=== PATIENT | male | born 1945 | race Caucasian/White ===

== ENCOUNTER 2020-01-11 06:13 | Day surgery (SDC) | payer MEDICARE, OTHER ==
[2020-01-04 12:17] LABS: BASOPHILS # (AUTO) 0.1 X10'3 (0-0.2); BASOPHILS % (AUTO) 0.7 % (0-1); EOSINOPHILS # (AUTO) 0.1 X10'3 (0-0.9); EOSINOPHILS % (AUTO) 1.5 % (0-6); LYMPHOCYTES # (AUTO) 2.2 X10'3 (1.1-4.8); LYMPHOCYTES % (AUTO) 26.8 % (21-51); MEAN CORPUSCULAR HEMOGLOBIN 32.2 PG (27.0-31.0); MEAN CORPUSCULAR HGB CONC 33.6 g/dL (33.0-36.5); MEAN CORPUSCULAR VOLUME 95.7 FL (78-98); MEAN PLATELET VOLUME 6.7 FL (7.4-10.4); MONOCYTES # (AUTO) 0.5 X10'3 (0-0.9); MONOCYTES % (AUTO) 6.4 % (2-12); NEUTROPHILS # (AUTO) 5.2 X10'3 (1.8-7.7); NEUTROPHILS % (AUTO) 64.6 % (42-75); PRE OP HEMATOCRIT 38.7 % (42.0-52.0); PRE OP PLATELET COUNT 310 X10'3 (140-440); RED BLOOD COUNT 4.04 X10'6 (4.70-6.10); RED CELL DISTRIBUTION WIDTH 13.3 % (11.5-14.5)
[2020-01-04 12:18] LABS: CLARITY,URINE CLEAR (Clear); COLOR,URINE YELLOW (Yellow); GLUCOSE, URINE NEGATIVE (Neg); KETONES,URINE NEGATIVE (Neg); LEUKOCYTE ESTERASE ,URINE NEGATIVE (Neg); NITRITES, URINE NEGATIVE (Neg); OCCULT BLOOD,URINE NEGATIVE (Neg); PH,URINE 5.5 (4.8-8.0); PROTEIN,URINE NEGATIVE (Neg); UROBILINOGEN,URINE 0.2 E.U/dL (0.2-1.0)
[2020-01-04 12:28] LABS: UA COLLECTION TYPE NON-SPECIFIED
[2020-01-04 12:41] LABS: ALBUMIN 3.7 G/DL (3.4-5.0); ALBUMIN/GLOBULIN RATIO 1.1 (1.1-1.5); ALKALINE PHOSPHATASE 82 IU/L (46-116); BLOOD UREA NITROGEN 16 MG/DL (7-18); BUN/CREATININE RATIO 10.9 (5.4-32.0); CALCIUM 8.7 MG/DL (8.5-10.1); CHLORIDE 103 MMOL/L (99-107); CREATININE 1.47 MG/DL (0.60-1.10); PRE OP ALT 17 U/L (30-65); PRE OP ANION GAP 9 (8-16); PRE OP AST 15 U/L (10-37); PRE OP BILIRUB, TOTAL 0.4 MG/DL (0.0-1.0); PRE OP GLUCOSE 105 MG/DL (70-104); PRE OP SODIUM 138 MMOL/L (135-145); TOTAL CARBON DIOXIDE 26.3 MMOL/L (24-32); TOTAL PROTEIN 7.1 G/DL (6.4-8.2); eGFR 47 ML/MIN
[~2020-01-11] VITALS: Ht 172.7 cm; Wt 81.6 kg
[2020-01-11] VITALS (9 sets, daily range): BP systolic 142–177; BP diastolic 63–88
[~2020-01-11 06:13] MED LIST: DILT180C89 PO; HYDR-3972 PO; ROPI0.5T4 PO; SYN0.088T PO; TEMA30CA5 PO; ceFAZolin 2gm in dextrose, iso 50 ML IV ONE; famotidine 20mg tablet PO ONE; ringers solution, lacted 1,000 ML IV SCH
[2020-01-11] MEDS ORDERED: bacitracin 15gm ointment TP ONE (08:31)
[2020-01-11] MEDS ORDERED: sevoflurane 250ml liquid IH ONE (08:40)
[2020-01-11] MEDS ORDERED: fentaNYL/PF 50MCG/1 ML 2ML syringe ONE (08:41)
[2020-01-11] MEDS ORDERED: midazolam 2 mg/2 ml injection ONE (08:42)
[2020-01-11] MEDS ORDERED: BUPIVAcaine/PF 2.5 mg/ml (0.25%) 30ml vial ONE (09:13)
[2020-01-11] MEDS ORDERED: ringers solution, lacted 1,000 ML IV SCH (09:49)
[2020-01-11] MEDS ORDERED: fentaNYL/PF 50MCG/1 ML 2ML syringe IV PRN (09:50)
[2020-01-11] MEDS ORDERED: HYDROmorphone inj. 0.5 MG/0.5 ML DISP.SYRIN IV PRN (09:50)
[2020-01-11] MEDS ORDERED: ondansetron/PF 4mg/2ml inj IV PRN (09:50)
[2020-01-11] MEDS ORDERED: propofol inj 20 ML IV ONE (10:03)
[2020-01-11] MEDS ORDERED: dexamethasone sod phosphate 4mg/ml inj. ONE (10:03)
[2020-01-11] MEDS ORDERED: glycopyrrolate 0.2mg/ml inj ONE (10:03)
[2020-01-11] MEDS ORDERED: rocuronium 10mg/ml inj IV ONE (10:03)
[2020-01-11] MEDS ORDERED: LIDOcaine 2% (20mg/ml) 5ml vial ONE (10:03)
[2020-01-11] MEDS ORDERED: neostigmine methylsulfate 1 MG/ML 10ml vial ONE (10:03)
[2020-01-11] MEDS ORDERED: ondansetron/PF 4mg/2ml inj ONE (10:03)
--- NOTE | 2020-01-11 10:18 | NUR ---
Received from OR via , accompanied by Anesthesiologist DR ECKERT and report given by Anesthesiolgist. AWAKE AND C/O SEVERE PAIN TO RT FOOT. WILL ADDRESS. VITALS STABLE. DRESSING DI. TOES WARM AND PINK.
[2020-01-11] MEDS: fentaNYL/PF 50MCG/1 ML 2ML syringe IV PRN ×2 (10:47→11:13)
--- NOTE | 2020-01-11 11:38 | NUR ---
AWAKE AND ORIENTED. VITALS STABLE. DRESSING DI. STATES [AIN IMPROVING. HOME WITH HIS SPOUSE AT THIS TIME.
== END 2020-01-11 11:38 | disposition home or self-care (01) ==
LOC: PAS 06:13
PROVIDERS: ATTEND Podiatrist Foot & Ankle Surgery
DX: M20.41 Other hammer toe(s) (acquired), right foot (principal); M77.31 Calcaneal spur, right foot; M19.071 Primary osteoarthritis, right ankle and foot; E03.9 Hypothyroidism, unspecified; I10 Essential (primary) hypertension; G89.18 Other acute postprocedural pain; Z87.891 Personal history of nicotine dependence; Z72.89 Other problems related to lifestyle; Z98.890 Other specified postprocedural states; Z98.41 Cataract extraction status, right eye; Z98.42 Cataract extraction status, left eye; Z88.5 Allergy status to narcotic agent; Z88.8 Allergy status to other drugs, medicaments and biological substances; Z11.59 Encounter for screening for other viral diseases; Z79.899 Other long term (current) drug therapy
CPT/HCPCS: 28119; 28285; 36415; 64450; 73620; 76000; 80053; 81003; 82948; 85025; 93005; A6223; C1713; J1100; J1170; J2001; J2250; J2405; J2704; J2710; J3010; J3490; J7120; U0003; A4215; A4618; A6449; A7000